=== PATIENT | female | born 1965 | race Caucasian/White ===

== ENCOUNTER 2018-12-18 09:06 | Emergency (ER) | payer SELFPAY, OTHER ==
[2018-12-18] MEDS: KETOROLAC 30 MG INJ IM (11:12)
[2018-12-18] MEDS: METHOCARBAMOL 750 MG TAB PO (11:12)
[2018-12-18] MEDS: DEXAMETHASONE 10 MG/ML 1 ML INJ IM (11:13)
== END 2018-12-18 12:43 | disposition home or self-care (01) ==
LOC: FTE 09:06
DX: M54.5 Low back pain (principal)
CPT/HCPCS: 96372; 99284-25

== ENCOUNTER 2018-12-20 10:58 | Emergency (ER) | payer SELFPAY | END 2018-12-20 12:48 | disposition home or self-care (01) | LOC: FTE 10:58 | DX: M25.512 Pain in left shoulder (principal) | CPT/HCPCS: 99283 ==